=== PATIENT | male | born 1975 | race Caucasian/White ===

== ENCOUNTER 2017-02-07 20:51 | Emergency (ER) | payer SELFPAY ==
[~2017-02-07] VITALS: Ht 193 cm; Wt 120.4 kg
[2017-02-07] MEDS ORDERED: PEN-VEE K,VEET500 MG PO (21:37)
[2017-02-07] MEDS ORDERED: ULTRAM50 MG PO (21:37)
[2017-02-07 21:46] VITALS: BP 133/92
== END 2017-02-07 21:47 | disposition home or self-care (01) ==
LOC: EME 20:51
DX: K08.89 Other specified disorders of teeth and supporting structures (principal); K02.9 Dental caries, unspecified; F17.200 Nicotine dependence, unspecified, uncomplicated
CPT/HCPCS: 99281; 99284

== ENCOUNTER 2017-12-12 21:21 | Emergency (ER) | payer SELFPAY ==
[~2017-12-12] VITALS: Ht 188 cm; Wt 101.0 kg
[~2017-12-12 21:21] MED LIST: PEN-VEE K,VEET500 MG PO; ULTRAM50 MG PO
[2017-12-12 21:28] VITALS: BP 164/98
== END 2017-12-12 21:40 ==
LOC: EME 21:21
DX: S31.149A Puncture wound of abdominal wall with foreign body, unspecified quadrant without penetration into peritoneal cavity, initial encounter (principal); Y35.491A Legal intervention involving other sharp objects, law enforcement official injured, initial encounter; F17.200 Nicotine dependence, unspecified, uncomplicated
CPT/HCPCS: 99281; 99282